=== PATIENT | male | born 1965 | race Caucasian/White ===

== ENCOUNTER 2024-04-15 08:01 | Outpatient (CLI) | payer BC, SELFPAY ==
--- OUTSIDE RECORDS SUMMARY | 2024-04-15 08:03 | XMS_ITS | Referral Summary ---
Author Organization [facility] Address [address] [place] [id number] Care Team Providers Care Shipping And Receiving Name Role Phone Aime Hopper MD Primary Care Provider Allergies No known active allergies Medications oxyCODONE (ROXICODONE) 5 MG tabletIndicatio ns:Right inguinal hernia Take 1-2 tablets (5-10 mg) by mouth every 4 hours as needed for moderate to severe pain 10 tablet 05/01/2020 Active Active Problems Problem Noted Date Diagnosed Date Right inguinal hernia 03/19/2020 Overview (03/19/2020): Added automatically from request for surgery [id number] Social History Tobacco Use Types Packs/Day Years Used Date Smoking Tobacco: Never Smokeless Tobacco: Never Tobacco Cessation:Counseling Given: Yes Alcohol Use Standard Drinks/Week Comments Yes 0 (1 standard drink = 0.6 oz pur e alcohol) occas Adolescent Education Answer Date Record ed Getting School Help Needed Not on file 03/05 Sex and Gender Information Value Date Recorded Sex Assigned at Not on file Legal Sex Male 3:58 AM TAKE OUT WAITRESS Gender Identity Not on file Sexual Orientation Not on file Last Filed Vital Signs Vital Sign Reading Time Taken Comments Blood Pressure 130/98 05/01/2020 10:45 AM TAKE OUT WAITRESS Pulse 67 05/01/2020 10:19 AM TAKE OUT WAITRESS Temperature 36.3 ??C (97.3 ??F) 05/01/2020 10:[address] Respiratory Rate 18 05/01/2020 10:45 AM TAKE OUT WAITRESS Oxygen Saturation 96% 05/01/2020 10:45 AM TAKE OUT WAITRESS Inhaled Oxygen Concentration - - Weight 95.7 kg (211 lb) 05/01/2020 6:27 AM TAKE OUT WAITRESS Height 185.4 cm (6' 1) 05/01/2020 6:27 AM TAKE OUT WAITRESS Body Mass Index 27.84 05/01/2020 6:27 AM TAKE OUT WAITRESS Plan of Treatment Not on file Medical Devices Implanted Type Area Telecommunications Operator Device Identifier Shelf Expiration Date Model / Serial / Lot Mesh Ultrapro Hernia 10cm Uhsl6 Implanted:Qty : 1 on 05/01/2020 by Robert Garcia MD at [facility] Mesh Right: Inguinal J [id number] 02/25/2021 [id number] / / [id number] [place] [address] Care Teams Shipping And Receiving Relationship Specialty Start Date End Date Aime Hopper MD [facility] [address] [place] [phone] PCP - General Family Practice 02/05/20
--- OUTSIDE RECORDS SUMMARY | 2024-04-15 08:03 | XMS_ITS | Clinical Summary ---
Author Organization [facility] Address [address] [place] [id number] Care Team Providers Care Costume Technician Name Role Phone Aime Hopper MD Primary Care Provider Allergies No known active allergies Medications oxyCODONE (ROXICODONE) 5 MG tabletIndicatio ns:Right inguinal hernia Take 1-2 tablets (5-10 mg) by mouth every 4 hours as needed for moderate to severe pain 10 tablet 05/01/2020 Active Active Problems Problem Noted Date Diagnosed Date Right inguinal hernia 03/19/2020 Overview (03/19/2020): Added automatically from request for surgery [id number] Social History Tobacco Use Types Packs/Day Years [...] on file Legal 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 Gender Identity Not on file Sexual Orientation Not on file Last Filed Vital Signs Vital Sign Reading Time Taken Comments Blood Pressure 130/98 05/01/2020 10:45 AM PROPERTY MANAGEMENT BOOKKEEPER Pulse 67 05/01/2020 10:19 AM PROPERTY MANAGEMENT BOOKKEEPER Temperature 36.3 ??C (97.3 ??F) 05/01/2020 10:[address] Respiratory Rate 18 05/01/2020 10:45 AM PROPERTY MANAGEMENT BOOKKEEPER Oxygen Saturation 96% 05/01/2020 10:45 AM PROPERTY MANAGEMENT BOOKKEEPER Inhaled Oxygen Concentration - - Weight 95.7 kg (211 lb) 05/01/2020 6:27 AM PROPERTY MANAGEMENT BOOKKEEPER Height 185.4 cm (6' 1) 05/01/2020 6:27 AM PROPERTY MANAGEMENT BOOKKEEPER Body Mass Index 27.84 05/01/2020 6:27 AM PROPERTY MANAGEMENT BOOKKEEPER Plan of Treatment Not on file Medical Devices Implanted Type Area Log Chipper Device Identifier Shelf Expiration Date Model / Serial / Lot Mesh Ultrapro Hernia 10cm Uhsl6 Implanted:Qty : 1 on 05/01/2020 by Robert Garcia MD at [facility] Mesh Right: Inguinal J [id number] 02/25/2021 [id number] / / [id number] Insurance BCBS OUT OF STATE Care Teams Costume Technician Relationship Specialty Start Date End Date Aime Hopper MD [facility] [address] [place] [phone] PCP - General Family Practice 02/05/20
--- OUTSIDE RECORDS SUMMARY | 2024-04-15 08:04 | XMS_ITS | Clinical Summary ---
Author Organization [facility] Address [place] [address] Care Team Providers Care Assistant Designer Name Role Phone Aime Hopper MD Primary Care Provider [phone] Social History Tobacco Use Types Packs/Day Years Used Date Smoking Tobacco: Never Assessed Sex and Gender Information Value Date Recorded Sex Assigned at Not on file Gender Identity Not on file Sexual Orientation Not on file Plan of Treatment Not on file Care Teams Assistant Designer Relationship Specialty [place] [address] [place] [address] PCP - General Family Practice 12/04/15
--- NOTE | 2024-04-15 09:14 | W.ANESCHARGE ---
Anesthesia Charges Start Date/Time Anesthesia Start Date: 04/15/24 Anesthesia Start Time: 08:45 Stop Date/Time Anesthesia Stop Date: 04/15/24 Anesthesia Stop Time: 09:12
--- NOTE | 2024-04-15 09:15 | W.ANESCHARGE ---
Anesthesia Charges Start Date/Time Anesthesia Start Date: 04/15/24 Anesthesia Start Time: 08:45 Stop Date/Time Anesthesia Stop Date: 04/15/24 Anesthesia Stop Time: 09:12
== END 2024-04-15 08:02 | disposition home or self-care (01) ==
LOC: OP CLINIC 08:02
PROVIDERS: PCP Internal Medicine; Visit Provider Internal Medicine
DX: Z12.11 Encounter for screening for malignant neoplasm of colon (principal); K57.30 Diverticulosis of large intestine without perforation or abscess without bleeding
CPT/HCPCS: 00811; 00812; 45378; J2704